=== PATIENT | male | born 1980 | race Caucasian/White ===

== ENCOUNTER 2020-01-02 03:35 | Emergency (ER) | payer MEDICAID ==
[~2020-01-02] VITALS: Ht 175.3 cm; Wt 113.6 kg
--- NOTE | 2020-01-02 03:44 | NUR ---
dustin notified [id number]
[2020-01-02] MEDS ORDERED: LIDOcaine/epinephrine/tetracaine TOPICAL sol 3 ML syringe TOP ONE (04:15)
[2020-01-02 04:26] VITALS: BP 137/78
== END 2020-01-02 04:57 | disposition home or self-care (01) ==
LOC: ER 03:35
DX: S01.81XA Laceration without foreign body of other part of head, initial encounter (principal); Z88.8 Allergy status to other drugs, medicaments and biological substances; Y04.2XXA Assault by strike against or bumped into by another person, initial encounter; Y93.89 Activity, other specified; Y92.89 Other specified places as the place of occurrence of the external cause; Y99.8 Other external cause status
CPT/HCPCS: 12013; 70450; 99284

== ENCOUNTER 2020-01-08 12:39 | Emergency (ER) | payer MEDICAID ==
[~2020-01-08] VITALS: Ht 180.3 cm; Wt 99.0 kg
[2020-01-08 14:57] LABS: CLARITY,URINE SLIGHTLY CLOUDY (Clear); COLOR,URINE YELLOW (Yellow); GLUCOSE, URINE NEGATIVE (Neg); KETONES,URINE TRACE mg/dl (Neg); LEUKOCYTE ESTERASE ,URINE NEGATIVE (Neg); NITRITES, URINE NEGATIVE (Neg); OCCULT BLOOD,URINE NEGATIVE (Neg); PH,URINE 6.5 (4.8-8.0); PROTEIN,URINE NEGATIVE (Neg)
[2020-01-08 15:00] LABS: UA COLLECTION TYPE CLN CATCH MIDSTREAM
--- NOTE | 2020-01-08 15:04 | NUR ---
ultrasound at bedside per md request
[2020-01-08 15:11] LABS: MUCUS STRANDS MANY /LPF (Neg); SQUAMOUS EPITHELIAL CELL,UR NONE SEEN /LPF (FEW)
[2020-01-08 15:14] LABS: CAL OXALATE CRYSTALS FEW /HPF (NEGATIVE); SPERM FEW /HPF (NEGATIVE)
[2020-01-08 15:15] LABS: BACTERIA,URINE FEW /HPF (Neg)
[2020-01-08 16:05] VITALS: BP 130/79
[2020-01-08] MEDS ORDERED: CEPH500C5 PO (16:14)
== END 2020-01-08 16:23 | disposition home or self-care (01) ==
LOC: ER 12:40
DX: N39.0 Urinary tract infection, site not specified (principal); Z88.8 Allergy status to other drugs, medicaments and biological substances
CPT/HCPCS: 36415; 76870; 81001; 87088; 87491; 99284

== ENCOUNTER 2020-04-12 22:05 | Emergency (ER) | payer MEDICAID ==
[~2020-04-12] VITALS: Ht 175.3 cm; Wt 100.0 kg
[2020-04-12 22:09] VITALS: BP 145/78
[2020-04-12] MEDS ORDERED: LIDOcaine 1.5% w/epinephrine 1:200,000 5ml ampul IJ ONE (22:25)
[2020-04-12] MEDS ORDERED: HYDROcodone/acetaminophen 10/325mg tab PO ONE (22:25)
[2020-04-12] MEDS ORDERED: bacitracin 15gm ointment TP ONE (22:25)
[2020-04-12] MEDS ORDERED: LIDOcaine 1% w/epiNEPHrine 1:200,000 30ml vial IJ ONE (22:30)
[2020-04-12] MEDS ORDERED: CEPH250T PO (23:47)
[2020-04-12] MEDS ORDERED: HYDR-4383 PO (23:47)
== END 2020-04-13 00:03 | disposition home or self-care (01) ==
LOC: ER 22:05
DX: S01.411A Laceration without foreign body of right cheek and temporomandibular area, initial encounter (principal); S81.012A Laceration without foreign body, left knee, initial encounter; S01.81XA Laceration without foreign body of other part of head, initial encounter; F17.200 Nicotine dependence, unspecified, uncomplicated; F15.90 Other stimulant use, unspecified, uncomplicated; Z98.890 Other specified postprocedural states; Z72.89 Other problems related to lifestyle; Z88.8 Allergy status to other drugs, medicaments and biological substances; Z79.2 Long term (current) use of antibiotics; Z79.899 Other long term (current) drug therapy; W18.40XA Slipping, tripping and stumbling without falling, unspecified, initial encounter; Y93.89 Activity, other specified; Y92.89 Other specified places as the place of occurrence of the external cause; Y99.8 Other external cause status
CPT/HCPCS: 12044; 12053; 99283

== ENCOUNTER 2020-04-26 05:12 | Emergency (ER) | payer MEDICAID ==
[~2020-04-26] VITALS: Ht 175.3 cm; Wt 88.5 kg
[~2020-04-26 05:12] MED LIST: HYDR-4383 PO
[2020-04-26 05:17] VITALS: BP 115/79
== END 2020-04-26 05:55 | disposition home or self-care (01) ==
LOC: ER 05:13
DX: S81.012D Laceration without foreign body, left knee, subsequent encounter (principal); S01.01XD Laceration without foreign body of scalp, subsequent encounter; S01.81XD Laceration without foreign body of other part of head, subsequent encounter; L03.116 Cellulitis of left lower limb; F15.90 Other stimulant use, unspecified, uncomplicated; Z72.89 Other problems related to lifestyle; Z59.0 Homelessness; Z98.890 Other specified postprocedural states; Z88.8 Allergy status to other drugs, medicaments and biological substances; Z79.899 Other long term (current) drug therapy; X58.XXXD Exposure to other specified factors, subsequent encounter
CPT/HCPCS: 99281

== ENCOUNTER 2020-05-25 09:50 | Emergency (ER) | payer MEDICAID ==
[~2020-05-25] VITALS: Ht 175.3 cm; Wt 90.9 kg
[2020-05-25] MEDS ORDERED: ketorolac trometh inj. 60 MG/2 ML VIAL IM ONE (10:30)
[2020-05-25 11:25] VITALS: BP 110/67
[2020-05-25] MEDS ORDERED: NAPR-56 PO (12:39)
== END 2020-05-25 13:02 | disposition home or self-care (01) ==
LOC: ER 09:51
DX: S80.212A Abrasion, left knee, initial encounter (principal); F17.200 Nicotine dependence, unspecified, uncomplicated; F15.90 Other stimulant use, unspecified, uncomplicated; Z72.89 Other problems related to lifestyle; Z59.0 Homelessness; Z88.8 Allergy status to other drugs, medicaments and biological substances; Z79.899 Other long term (current) drug therapy; X50.1XXA Overexertion from prolonged static or awkward postures, initial encounter; Y93.89 Activity, other specified; Y92.89 Other specified places as the place of occurrence of the external cause; Y99.8 Other external cause status
CPT/HCPCS: 29505; 73564; 96372; 99284; J1885

== ENCOUNTER 2020-07-20 20:41 | Inpatient (IN) | payer MEDICAID ==
[~2020-07-20] VITALS: Ht 180.3 cm; Wt 88.5 kg
[2020-07-20] MEDS ORDERED: LIDOcaine 1% W/epiNEPHrine 1:200,000 10ml vial IJ ONE (22:45)
[2020-07-20] MEDS ORDERED: oxyCODONE/APAP 10/325mg tablet PO ONE (22:50)
[2020-07-20] MEDS ORDERED: LIDOcaine 1% w/epiNEPHrine 1:200,000 30ml vial IJ ONE (22:50)
[2020-07-21 00:28] LABS: BASOPHILS % (AUTO) 0.3 % (0-1); EOSINOPHILS % (AUTO) 0.3 % (0-6); HEMATOCRIT 33.4 % (42.0-52.0); HEMOGLOBIN 10.9 g/dl (14.0-17.9); LYMPHOCYTES # (AUTO) 1.6 X10'3 (1.1-4.8); LYMPHOCYTES % (AUTO) 15.3 % (21-51); MEAN CORPUSCULAR HEMOGLOBIN 25.9 PG (27.0-31.0); MEAN CORPUSCULAR HGB CONC 32.8 g/dL (33.0-36.5); MEAN CORPUSCULAR VOLUME 79.1 FL (78-98); MEAN PLATELET VOLUME 7.3 FL (7.4-10.4); MONOCYTES # (AUTO) 1.9 X10'3 (0-0.9); MONOCYTES % (AUTO) 18.3 % (2-12); NEUTROPHILS # (AUTO) 6.7 X10'3 (1.8-7.7); NEUTROPHILS % (AUTO) 65.8 % (42-75); PLATELET COUNT 414 X10'3 (140-440); RED BLOOD COUNT 4.22 X10'6 (4.70-6.10); RED CELL DISTRIBUTION WIDTH 16.3 % (11.5-14.5); WHITE BLOOD COUNT 10.1 X10'3 (4.5-11.0)
[2020-07-21 00:42] LABS: ALBUMIN 2.7 G/DL (3.4-5.0); ANION GAP 7 (8-16); BLOOD UREA NITROGEN 10 MG/DL (7-18); BUN/CREATININE RATIO 12.5 (5.4-32.0); C-REACTIVE PROTEIN 4.88 MG/DL (0.0-0.5); CALCIUM 8.6 MG/DL (8.5-10.1); CHLORIDE 101 MMOL/L (99-107); GLUCOSE 116 MG/DL (70-104); SODIUM 134 MMOL/L (135-145); TOTAL CARBON DIOXIDE 26.2 MMOL/L (24-32); eGFR > 90 ML/MIN
[2020-07-21 00:49] LABS: BF RBC COUNT 5850 /CU MM; BF WBC COUNT 68550 /CU MM (0-1000); BFAPPEAR CLOUDY; BFCOLOR YELLOW; BFVOLUME 22 ML; LYMPHOCYTES,BODY FLUID 6 %; MONOCYTES,BODY FLUID 2 %; NEUTROPHILS,BODY FLUID 92 %
[2020-07-21] MEDS ORDERED: CefTRIAXone/D5W-Rocephin 1gm 50 ML IV ONE (01:00)
--- NOTE | 2020-07-21 01:12 | NUR ---
LA EDUCATED ON NPO STATUS
[2020-07-21] MEDS ORDERED: NO HOME MEDS (04:44)
[2020-07-21] MEDS ORDERED: mag hydrox/Alum hydrox/simeth 30ml oral suspension PO PRN (05:10)
[2020-07-21] MEDS ORDERED: magnesium hydroxide 30ml (MOM) UD suspension PO PRN (05:10)
[2020-07-21] MEDS ORDERED: potassium CL 10mEq/100ml bag 100 ML IV PRN ×2 (05:10)
[2020-07-21] MEDS ORDERED: ondansetron/PF 4mg/2ml inj IV PRN (05:10)
[2020-07-21] MEDS ORDERED: morphine 2 MG/ML inj. syringe IV PRN ×2 (05:10)
[2020-07-21] MEDS ORDERED: acetaminophen 325mg tablet PO PRN (05:10)
[2020-07-21] MEDS ORDERED: potassium Cl 20 mEq SR tablet PO PRN ×2 (05:10)
[2020-07-21 07:32] VITALS: BP 126/76
[2020-07-21] MEDS: K and/or MAG REPLACEMENT MC SCH ×2 (08:00→20:00)
--- NOTE | 2020-07-21 09:01 | NUR ---
checked on patient, he is resting. no needs at this time
--- NOTE | 2020-07-21 09:15 | NUR ---
HELPED TECH WITH BED CHANGE AND PER CARE
[2020-07-21] MEDS ORDERED: vancomycin/NS 1 GM ADD-VANTAGE 250 ML IV SCH (09:20)
[2020-07-21 10:00] VITALS: BP 122/83
[2020-07-21] MEDS: normal saline 1000ml 1,000 ML IV SCH ×3 (10:55→23:12)
[2020-07-21] MEDS: HYDROcodone/acetaminophen 10/325mg tab PO PRN ×2 (11:47→23:12)
[2020-07-21] MEDS ORDERED: VANCOmycin 1250MG/NS 250ml Bag 250 ML IV SCH (13:00)
[2020-07-21] MEDS ORDERED: ringers solution, lacted 1,000 ML IV ONE (14:10)
[2020-07-21 18:00] VITALS: BP 122/70
--- NOTE | 2020-07-21 18:30 | NUR ---
Patient in room [facility] 4017. I have received report from Sakshi DUNCAN and had the opportunity to ask questions and assume patient care.
--- NOTE | 2020-07-21 18:31 | NUR ---
Problems reprioritized. Patient report given, questions answered & plan of care reviewed with
[2020-07-21] MEDS: lactobacillus rhamnosus 10,000 MMU CELLS/CAPSULE PO SCH (20:49)
[2020-07-21 22:00] VITALS: BP 138/80
[2020-07-21] MEDS: vancomycin/NS 1 GM ADD-VANTAGE 250 ML IV SCH (23:11)
[2020-07-22] VITALS (16 sets, daily range): BP systolic 111–135; BP diastolic 52–93
[2020-07-22] MEDS: CefTRIAXone/D5W-Rocephin 1gm 50 ML IV SCH (03:00)
[2020-07-22] MEDS ORDERED: famotidine 20mg tablet PO ONE (06:00)
[2020-07-22 06:04] LABS: BASOPHILS % (AUTO) 0.5 % (0-1); EOSINOPHILS # (AUTO) 0.1 X10'3 (0-0.9); EOSINOPHILS % (AUTO) 1.4 % (0-6); HEMOGLOBIN 11.6 g/dl (14.0-17.9); LYMPHOCYTES # (AUTO) 1.6 X10'3 (1.1-4.8); LYMPHOCYTES % (AUTO) 16.7 % (21-51); MEAN CORPUSCULAR HEMOGLOBIN 25.5 PG (27.0-31.0); MEAN CORPUSCULAR HGB CONC 32.1 g/dL (33.0-36.5); MEAN CORPUSCULAR VOLUME 79.4 FL (78-98); MEAN PLATELET VOLUME 7.1 FL (7.4-10.4); MONOCYTES # (AUTO) 1.5 X10'3 (0-0.9); MONOCYTES % (AUTO) 15.9 % (2-12); NEUTROPHILS # (AUTO) 6.3 X10'3 (1.8-7.7); NEUTROPHILS % (AUTO) 65.5 % (42-75); PLATELET COUNT 410 X10'3 (140-440); RED BLOOD COUNT 4.53 X10'6 (4.70-6.10); RED CELL DISTRIBUTION WIDTH 16.3 % (11.5-14.5); WHITE BLOOD COUNT 9.6 X10'3 (4.5-11.0)
--- NOTE | 2020-07-22 06:15 | NUR ---
Problems reprioritized. Patient report given, questions answered & plan of care reviewed with Samina DUNCAN.
--- NOTE | 2020-07-22 06:15 | NUR ---
Problems reprioritized. Patient report given, questions answered & plan of care reviewed with Sandra DUNCAN.
[2020-07-22 06:20] LABS: ALANINE AMINOTRANSFERASE 36 U/L (12-78); ALBUMIN 2.4 G/DL (3.4-5.0); ALBUMIN/GLOBULIN RATIO 0.5 (1.1-1.5); ALKALINE PHOSPHATASE 70 IU/L (46-116); ANION GAP 8 (8-16); ASPARTATE AMINO TRANSFERASE 26 U/L (10-37); BILIRUBIN,TOTAL 0.4 MG/DL (0.1-1.0); BLOOD UREA NITROGEN 11 MG/DL (7-18); BUN/CREATININE RATIO 14.5 (5.4-32.0); CALCIUM 8.8 MG/DL (8.5-10.1); CHLORIDE 100 MMOL/L (99-107); CREATININE 0.76 MG/DL (0.60-1.10); GLUCOSE 84 MG/DL (70-104); POTASSIUM 4.3 MMOL/L (3.5-5.1); SODIUM 136 MMOL/L (135-145); TOTAL CARBON DIOXIDE 28.5 MMOL/L (24-32); TOTAL PROTEIN 7.2 G/DL (6.4-8.2); eGFR > 90 ML/MIN
[2020-07-22] MEDS: HYDROcodone/acetaminophen 10/325mg tab PO PRN ×2 (07:14→21:00)
[2020-07-22] MEDS: lactobacillus rhamnosus 10,000 MMU CELLS/CAPSULE PO SCH ×2 (07:15→20:58)
[2020-07-22] MEDS: vancomycin/NS 1 GM ADD-VANTAGE 250 ML IV SCH (07:17)
[2020-07-22] MEDS ORDERED: BUPIVAcaine/PF 2.5 mg/ml (0.25%) 30ml vial ONE ×2 (07:19→07:24)
[2020-07-22] MEDS: K and/or MAG REPLACEMENT MC SCH ×2 (08:00→20:00)
[2020-07-22] MEDS ORDERED: hydrALAZINE 20mg/ml inj. IV PRN (08:00)
[2020-07-22] MEDS ORDERED: labetalol 20mg/4ml (5mg/ml) syringe IV PRN (08:00)
[2020-07-22] MEDS ORDERED: meperidine/PF 25mg/ml syringe IV PRN ×3 (08:00)
[2020-07-22] MEDS ORDERED: ringers solution, lacted 1,000 ML IV SCH (08:00)
[2020-07-22] MEDS ORDERED: proCHLORperazine 10 MG/2 ml inj IV PRN (08:00)
[2020-07-22] MEDS ORDERED: morphine 4 MG/ML inj SYRINge IV PRN (08:00)
[2020-07-22] MEDS ORDERED: morphine 2 MG/ML inj. syringe IV PRN (08:00)
[2020-07-22] MEDS ORDERED: ondansetron/PF 4mg/2ml inj IV PRN (08:00)
[2020-07-22] MEDS ORDERED: acetaminophen 1,000mg/100ml IV 100 ML IV PRN (08:00)
[2020-07-22] MEDS ORDERED: midazolam 2 mg/2 ml injection ONE (08:12)
[2020-07-22] MEDS ORDERED: fentaNYL/PF 50MCG/1 ML 2ML syringe ONE (08:12)
[2020-07-22] MEDS ORDERED: ondansetron/PF 4mg/2ml inj ONE (08:24)
[2020-07-22] MEDS ORDERED: dexamethasone sod phosphate 4mg/ml inj. ONE (08:24)
[2020-07-22] MEDS ORDERED: propofol inj 20 ML IV ONE (08:24)
[2020-07-22] MEDS ORDERED: LIDOcaine 2% (20mg/ml) 5ml vial ONE (08:24)
--- NOTE | 2020-07-22 08:59 | NUR ---
Received from OR via , accompanied by Anesthesiologist DR ALVAREZ and report given by Anesthesiolgist.PT WAKES TO VOICE, SKIN WARM AND PINK, NO C/O PAIN, LEFT KNEE DRESSING COVERED WITH SUZANNA WRAP, CD, SCD'S ON, PIV LEFT WRIST 20G WITH LR 100ML/HR, PEDAL PULSES BILAT +3.
--- NOTE | 2020-07-22 09:29 | NUR ---
Report called to receiving nurse. Transferred via BED Belongings . Special Issues communicated to receiving nurse LORRAINE DUNCAN. PT IS AWAKE, ALERT AND ORIENTED, SKIN WARM AND PINK, DISTAL PULSES +3, DRESSING CD, PIV PATENT, NO C/O PAIN, SCD'S ON, FELIBERTO CLEAR LIQUIDS, PT MEETS DISCHARGE CRITERIA.
--- NOTE | 2020-07-22 10:00 | NUR ---
Dr. South aware of patient Synovial fluid results.
--- NOTE | 2020-07-22 12:01 | NUR ---
Malnutrition consult: Pt reports 24-33 lb wt loss with decreased appetite per malnutrition risk screen with RN. Current documented scaled weight is stable with wt hx. Pt on a regular diet documented with 100% PO intake first meal. Patient's only documented decrease in muscle strength is localized to left leg where pt has a knee injury. No documented edema. Pt appears well developed well nourished per ED report. Pt currently lacks a minimum of two criteria for malnutrition. Will continue to follow and monitor need for additional protein post I&D pending further trends in PO intake. Addendum: 07/22/20 at [address] Amended: Links added.
[2020-07-22] MEDS ORDERED: VANCOMYCIN LEVEL IV ONE (14:30)
[2020-07-22] MEDS: VANCOmycin 1250MG/NS 250ml Bag 250 ML IV SCH ×2 (16:26→23:30)
--- NOTE | 2020-07-22 18:11 | NUR ---
Problems reprioritized. Patient report given, questions answered & plan of care reviewed with Boubacar.
--- NOTE | 2020-07-22 18:42 | NUR ---
Problems reprioritized. Patient report given, questions answered & plan of care reviewed with Boubacar DUNCAN.
[2020-07-23 02:00] VITALS: BP 95/43
[2020-07-23] MEDS: CefTRIAXone/D5W-Rocephin 1gm 50 ML IV SCH (03:06)
[2020-07-23 05:50] LABS: BASOPHILS # (AUTO) 0.1 X10'3 (0-0.2); BASOPHILS % (AUTO) 0.5 % (0-1); EOSINOPHILS % (AUTO) 0 % (0-6); HEMOGLOBIN 10.7 g/dl (14.0-17.9); LYMPHOCYTES # (AUTO) 1.1 X10'3 (1.1-4.8); LYMPHOCYTES % (AUTO) 8.2 % (21-51); MEAN CORPUSCULAR HEMOGLOBIN 26.1 PG (27.0-31.0); MEAN CORPUSCULAR HGB CONC 33.3 g/dL (33.0-36.5); MEAN CORPUSCULAR VOLUME 78.5 FL (78-98); MEAN PLATELET VOLUME 7.7 FL (7.4-10.4); MONOCYTES % (AUTO) 7.2 % (2-12); NEUTROPHILS # (AUTO) 11.4 X10'3 (1.8-7.7); NEUTROPHILS % (AUTO) 84.1 % (42-75); PLATELET COUNT 432 X10'3 (140-440); RED BLOOD COUNT 4.08 X10'6 (4.70-6.10); RED CELL DISTRIBUTION WIDTH 15.8 % (11.5-14.5); WHITE BLOOD COUNT 13.5 X10'3 (4.5-11.0)
[2020-07-23 05:57] LABS: ANION GAP 6 (8-16); BILIRUBIN,TOTAL 0.2 MG/DL (0.1-1.0); BLOOD UREA NITROGEN 15 MG/DL (7-18); BUN/CREATININE RATIO 20.8 (5.4-32.0); CALCIUM 8.7 MG/DL (8.5-10.1); CHLORIDE 104 MMOL/L (99-107); CREATININE 0.72 MG/DL (0.60-1.10); GLUCOSE 122 MG/DL (70-104); POTASSIUM 4.4 MMOL/L (3.5-5.1); SODIUM 138 MMOL/L (135-145); TOTAL CARBON DIOXIDE 28.5 MMOL/L (24-32); TOTAL PROTEIN 6.9 G/DL (6.4-8.2); eGFR > 90 ML/MIN
[2020-07-23 05:58] LABS: ALANINE AMINOTRANSFERASE 32 U/L (12-78); ALBUMIN 2.2 G/DL (3.4-5.0); ALBUMIN/GLOBULIN RATIO 0.5 (1.1-1.5); ALKALINE PHOSPHATASE 63 IU/L (46-116); ASPARTATE AMINO TRANSFERASE 18 U/L (10-37)
[2020-07-23 06:00] VITALS: BP 110/55
--- NOTE | 2020-07-23 06:50 | NUR ---
Problems reprioritized. Patient report given, questions answered & plan of care reviewed with Samina DUNCAN.
--- NOTE | 2020-07-23 07:03 | NUR ---
Patient in room [facility] 4017. I have received report from PERLA Hamlin and had the opportunity to ask questions and assume patient care.
--- NOTE | 2020-07-23 07:03 | NUR ---
Rec'd call from Katelynn in micro, culture left knee synovial fluid MRSA +
--- NOTE | 2020-07-23 07:16 | NUR ---
Page Sent PAGER ID: [phone] MESSAGE: Samina 5199-RE: Rah Brandt [id number]...pt culture L knee synovial fluid positive MRSA
[2020-07-23] MEDS: K and/or MAG REPLACEMENT MC SCH ×2 (07:40→20:00)
[2020-07-23] MEDS: lactobacillus rhamnosus 10,000 MMU CELLS/CAPSULE PO SCH ×2 (07:50→21:24)
[2020-07-23] MEDS: VANCOmycin 1250MG/NS 250ml Bag 250 ML IV SCH ×2 (07:50→17:30)
[2020-07-23 10:00] VITALS: BP 120/66
--- NOTE | 2020-07-23 11:34 | NUR ---
Noted pt PO 100% regular meals; double proteins BIDLD added given additional needs for wound healing s/p I&D L knee. Dietary notified. Addendum: 07/23/20 at [address] Amended: Links added.
[2020-07-23] MEDS ORDERED: VANCOMYCIN LEVEL IV ONE (15:30)
[2020-07-23 18:00] VITALS: BP 108/60
--- NOTE | 2020-07-23 18:21 | NUR ---
Problems reprioritized. Patient report given, questions answered & plan of care reviewed with PERLA MENA.
[2020-07-23 22:00] VITALS: BP 113/70
[2020-07-24] MEDS: VANCOmycin 1250MG/NS 250ml Bag 250 ML IV SCH (00:44)
[2020-07-24 06:00] VITALS: BP 126/81
--- NOTE | 2020-07-24 06:23 | NUR ---
Patient in room [facility] 4017. I have received report from PERLA MENA and had the opportunity to ask questions and assume patient care.
[2020-07-24 07:25] LABS: BASOPHILS # (AUTO) 0.1 X10'3 (0-0.2); BASOPHILS % (AUTO) 0.9 % (0-1); EOSINOPHILS # (AUTO) 0.1 X10'3 (0-0.9); HEMATOCRIT 33.9 % (42.0-52.0); HEMOGLOBIN 11.1 g/dl (14.0-17.9); LYMPHOCYTES # (AUTO) 2.4 X10'3 (1.1-4.8); LYMPHOCYTES % (AUTO) 24.4 % (21-51); MEAN CORPUSCULAR HEMOGLOBIN 26.1 PG (27.0-31.0); MEAN CORPUSCULAR HGB CONC 32.7 g/dL (33.0-36.5); MEAN CORPUSCULAR VOLUME 79.8 FL (78-98); MEAN PLATELET VOLUME 7.5 FL (7.4-10.4); MONOCYTES % (AUTO) 10.3 % (2-12); NEUTROPHILS # (AUTO) 6.3 X10'3 (1.8-7.7); NEUTROPHILS % (AUTO) 63.4 % (42-75); PLATELET COUNT 458 X10'3 (140-440); RED BLOOD COUNT 4.24 X10'6 (4.70-6.10); RED CELL DISTRIBUTION WIDTH 15.9 % (11.5-14.5); WHITE BLOOD COUNT 9.9 X10'3 (4.5-11.0)
[2020-07-24 07:47] LABS: ALANINE AMINOTRANSFERASE 39 U/L (12-78); ALBUMIN 2.3 G/DL (3.4-5.0); ALBUMIN/GLOBULIN RATIO 0.5 (1.1-1.5); ALKALINE PHOSPHATASE 64 IU/L (46-116); ANION GAP 5 (8-16); ASPARTATE AMINO TRANSFERASE 23 U/L (10-37); BILIRUBIN,TOTAL 0.2 MG/DL (0.1-1.0); BLOOD UREA NITROGEN 15 MG/DL (7-18); BUN/CREATININE RATIO 18.8 (5.4-32.0); CALCIUM 8.6 MG/DL (8.5-10.1); CHLORIDE 105 MMOL/L (99-107); GLUCOSE 86 MG/DL (70-104); POTASSIUM 3.9 MMOL/L (3.5-5.1); SODIUM 140 MMOL/L (135-145); TOTAL CARBON DIOXIDE 29.7 MMOL/L (24-32); TOTAL PROTEIN 6.9 G/DL (6.4-8.2); eGFR > 90 ML/MIN
[2020-07-24] MEDS: K and/or MAG REPLACEMENT MC SCH (08:00)
[2020-07-24] MEDS: lactobacillus rhamnosus 10,000 MMU CELLS/CAPSULE PO SCH (08:07)
--- NOTE | 2020-07-24 08:20 | NUR ---
sent a page to hospitalist about pt going ama this morning
--- NOTE | 2020-07-24 08:20 | NUR ---
WENT INTO PTS ROOM TO PROVIDE AM MEDS, PT WAS TEARFUL AND STATED HE FEELS LIKE HES IN SENIOR CARE AGAIN AND HAS TO GET OUT OF HERE FOR HIS MENTAL HEALTH. BRINDA RAMIREZ MD AND DOCUMENTED OCCURRENCE REPORT. IV WAS REMOVED, PT DRESSED SELF AND I ESCORTED PT OUT THE FRONT DOORS
[2020-07-25] MEDS ORDERED: VANCOMYCIN LEVEL IV ONE (07:30)
== END 2020-07-24 08:20 | disposition left against medical advice (07) | DRG 344 ==
LOC: ER 20:43 → ED HOLD 07-21 05:07 → ORTHO 4S 07-21 07:15 → PACU 07-22 08:47 → ORTHO 4S 07-22 09:30
PROVIDERS: ADMIT Internal Medicine; ATTEND Internal Medicine
PROC: 0S9D3ZZ Drainage of Left Knee Joint, Percutaneous Approach (ICD-10-PCS; 2020-07-20)
PROC: 0Y9G0ZZ Drainage of Left Knee Region, Open Approach (ICD-10-PCS; principal; 2020-07-22 07:59)
DX: M00.9 Pyogenic arthritis, unspecified (principal); F12.10 Cannabis abuse, uncomplicated; G89.29 Other chronic pain; B19.20 Unspecified viral hepatitis C without hepatic coma; D64.9 Anemia, unspecified; E43 Unspecified severe protein-calorie malnutrition; B95.62 Methicillin resistant Staphylococcus aureus infection as the cause of diseases classified elsewhere; F15.10 Other stimulant abuse, uncomplicated; D63.8 Anemia in other chronic diseases classified elsewhere; R26.2 Difficulty in walking, not elsewhere classified; Z20.828 Contact with and (suspected) exposure to other viral communicable diseases; F17.200 Nicotine dependence, unspecified, uncomplicated; Z59.0 Homelessness; Z88.8 Allergy status to other drugs, medicaments and biological substances; Z68.27 Body mass index [BMI] 27.0-27.9, adult
CPT/HCPCS: 36415; 73564; 80048; 80053; 80202; 82948; 83605; 85025; 85651; 85730; 86140; 87040; 87070; 87077; 87081; 87186; 87635; 89051; 96365; 99285; A4215; A4618; A6222; A6446; A6449; A7000; C9803; G0378; J0696; J1100; J2001; J2250; J2270; J2405; J2704; J3010; J3370; J3490; J7030; J7120

== ENCOUNTER 2022-02-01 03:00 | Emergency (ER) | payer MEDICAID ==
[~2022-02-01] VITALS: Ht 180.3 cm; Wt 72.0 kg
[~2022-02-01 03:00] MED LIST changes: -HYDR-4383 PO; +NO HOME MEDS
[2022-02-01 03:16] VITALS: BP 114/83
== END 2022-02-01 06:30 | disposition left against medical advice (07) ==
LOC: ER 03:01
DX: R07.81 Pleurodynia (principal); Z53.21 Procedure and treatment not carried out due to patient leaving prior to being seen by health care provider; W19.XXXA Unspecified fall, initial encounter; Y93.89 Activity, other specified; Y92.89 Other specified places as the place of occurrence of the external cause; Y99.8 Other external cause status
CPT/HCPCS: 71100

== ENCOUNTER 2022-10-13 10:43 | Inpatient (IN) | payer MEDICAID ==
[~2022-10-13] VITALS: Ht 180.3 cm; Wt 79.5 kg
[~2022-10-13 10:43] MED LIST changes: +NALO4SPR BOTHNARES
[2022-10-13 11:28] LABS: ABG BASE EXCESS -2.8 mmol/L (-2.0-2.0); ABG HCO3 21.6 mmol/L (22.0-26.0); ABG OXYGEN SATURATION 92.9 % (94-97); ABG PCO2 (T) 36.4 mmHg (35.0-48.0); ABG PO2 (T) 71.1 mmHg (75.0-100.0); ALLEN'S TEST POSITIVE; FCOHb 0.6 % (0.0-3.9); FMetHb 0.2 % (0.0-1.5); FO2Hb 92.2 % (94-97); RESPIRATORY RATE 12 b/min; TOTAL HEMOGLOBIN 13.3 G/dl (14.0-17.9)
[2022-10-13 11:29] LABS: ALANINE AMINOTRANSFERASE 37 U/L (12-78); ALBUMIN 2.9 G/DL (3.4-5.0); ALBUMIN/GLOBULIN RATIO 0.6 (1.1-1.5); ALKALINE PHOSPHATASE 113 IU/L (46-116); ANION GAP 13 (8-16); ASPARTATE AMINO TRANSFERASE 46 U/L (10-37); BILIRUBIN,TOTAL 0.3 MG/DL (0.1-1.0); BLOOD UREA NITROGEN 16 MG/DL (7-18); BUN/CREATININE RATIO 13.9 (5.4-32.0); CALCIUM 8.6 MG/DL (8.5-10.1); CHLORIDE 101 MMOL/L (99-107); CREATININE 1.15 MG/DL (0.60-1.10); GLUCOSE 164 MG/DL (70-104); POTASSIUM 3.5 MMOL/L (3.5-5.1); SODIUM 140 MMOL/L (135-145); TOTAL CARBON DIOXIDE 26.2 MMOL/L (24-32); eGFR 70 ML/MIN
[2022-10-13] MEDS ORDERED: ketorolac trometh. 30mg/ml inj. IV ONE (11:30)
[2022-10-13 11:37] LABS: MAGNESIUM 2.1 MG/DL (1.5-2.4)
[2022-10-13 11:41] LABS: BASOPHILS # (AUTO) 0.1 X10'3 (0-0.2); BASOPHILS % (AUTO) 1.1 % (0-1); EOSINOPHILS % (AUTO) 0.3 % (0-6); HEMATOCRIT 40.8 % (42.0-52.0); HEMOGLOBIN 12.9 g/dl (14.0-17.9); LYMPHOCYTES % (AUTO) 26.3 % (21-51); MEAN CORPUSCULAR HEMOGLOBIN 26.3 PG (27.0-31.0); MEAN CORPUSCULAR HGB CONC 31.7 g/dL (33.0-36.5); MEAN PLATELET VOLUME 6.8 FL (7.4-10.4); MONOCYTES % (AUTO) 8.7 % (2-12); NEUTROPHILS # (AUTO) 7.2 X10'3 (1.8-7.7); NEUTROPHILS % (AUTO) 63.6 % (42-75); PLATELET COUNT 290 X10'3 (140-440); RED BLOOD COUNT 4.92 X10'6 (4.70-6.10); RED CELL DISTRIBUTION WIDTH 16.6 % (11.5-14.5); WHITE BLOOD COUNT 11.3 X10'3 (4.5-11.0)
[2022-10-13] MEDS ORDERED: furosemide 10 MG/1 ML 10ml inj IV ONE (12:00)
[2022-10-13] MEDS ORDERED: nitroGLYCERIN-Tridil 50MG/D5W 250 ML IV SCH (12:16)
--- NOTE | 2022-10-13 12:35 | NUR ---
NITRO GTT STARTED AND SETTINGS INCREASED TO 10MCG/MIN PER VERBAL ORDER DR. WHITFIELD.
--- NOTE | 2022-10-13 13:55 | NUR ---
PT TAKEN TO AND BACK FROM CT WITH RN AND RT AT [facility].
[2022-10-13] MEDS ORDERED: CefTRIAXone/D5W-Rocephin 1gm 50 ML IV ONE (14:35)
[2022-10-13] MEDS ORDERED: acetaminophen 325mg tablet PO PRN (17:35)
[2022-10-13] MEDS ORDERED: magnesium hydroxide 30ml (MOM) UD suspension PO PRN (17:35)
[2022-10-13] MEDS ORDERED: ondansetron/PF 4mg/2ml inj IV PRN (17:35)
[2022-10-13] MEDS ORDERED: normal saline 1000ml 1,000 ML IV SCH (17:35)
[2022-10-13] MEDS ORDERED: mag hydrox/Alum hydrox/simeth 30ml oral suspension PO PRN (17:35)
[2022-10-13] MEDS ORDERED: PERFLUTREN PROTEIN-A MICROSPHR (Optison) 0.22 MG/ML 3ML VIAL IV ONE (17:47)
[2022-10-13 18:10] VITALS: BP 113/77
[2022-10-13] MEDS ORDERED: ipratropium/albuterol 3ml nebule NEB SCH (19:00)
[2022-10-13] MEDS ORDERED: docusate sod 100mg capsule PO SCH (20:00)
[2022-10-13] MEDS ORDERED: furosemide 10 MG/1 ML 10ml inj IV SCH (20:00)
[2022-10-13] MEDS ORDERED: heparin, porcine 5000 units/ml vial SQ SCH (20:00)
[2022-10-14] MEDS ORDERED: piperacillin/tazo 4.5gm/100ml 100 ML IV SCH
== END 2022-10-13 19:45 | disposition left against medical advice (07) | DRG 812 ==
LOC: ER 10:43 → ED HOLD 17:37 → EDBEDREQ 19:17
PROVIDERS: ADMIT Family Medicine; ATTEND Family Medicine
PROC: 5A09357 Assistance with Respiratory Ventilation, Less than 24 Consecutive Hours, Continuous Positive Airway Pressure (ICD-10-PCS; principal; 2022-10-13)
DX: T40.411A Poisoning by fentanyl or fentanyl analogs, accidental (unintentional), initial encounter (principal); J96.01 Acute respiratory failure with hypoxia; J69.0 Pneumonitis due to inhalation of food and vomit; F11.90 Opioid use, unspecified, uncomplicated; R04.2 Hemoptysis; F15.90 Other stimulant use, unspecified, uncomplicated; F17.210 Nicotine dependence, cigarettes, uncomplicated; Z53.29 Procedure and treatment not carried out because of patient's decision for other reasons; Z59.00 Homelessness unspecified; Y92.89 Other specified places as the place of occurrence of the external cause; Z88.8 Allergy status to other drugs, medicaments and biological substances
CPT/HCPCS: 36415; 36600; 71045; 71250; 80053; 82803; 83735; 83880; 84484; 85018; 85025; 93306; 94660; 94760; 99291; G0378; J0696; J1885; J1940; J3490

== ENCOUNTER 2022-11-06 05:16 | Emergency (ER) | payer MEDICAID ==
[~2022-11-06] VITALS: Ht 180.3 cm; Wt 79.5 kg
[2022-11-06 05:35] VITALS: BP 139/92
[2022-11-06 05:37] LABS: BASOPHILS # (AUTO) 0.1 X10'3 (0-0.2); BASOPHILS % (AUTO) 0.8 % (0-1); EOSINOPHILS # (AUTO) 0.4 X10'3 (0-0.9); EOSINOPHILS % (AUTO) 3.6 % (0-6); HEMATOCRIT 39.7 % (42.0-52.0); HEMOGLOBIN 12.5 g/dl (14.0-17.9); LYMPHOCYTES % (AUTO) 20.4 % (21-51); MEAN CORPUSCULAR HEMOGLOBIN 26.3 PG (27.0-31.0); MEAN CORPUSCULAR HGB CONC 31.5 g/dL (33.0-36.5); MEAN CORPUSCULAR VOLUME 83.5 FL (78-98); MONOCYTES # (AUTO) 0.9 X10'3 (0-0.9); NEUTROPHILS # (AUTO) 6.4 X10'3 (1.8-7.7); NEUTROPHILS % (AUTO) 66.2 % (42-75); PLATELET COUNT 411 X10'3 (140-440); RED BLOOD COUNT 4.75 X10'6 (4.70-6.10); RED CELL DISTRIBUTION WIDTH 17.5 % (11.5-14.5); WHITE BLOOD COUNT 9.6 X10'3 (4.5-11.0)
[2022-11-06 05:50] LABS: ALANINE AMINOTRANSFERASE 32 U/L (12-78); ALBUMIN 3.4 G/DL (3.4-5.0); ALBUMIN/GLOBULIN RATIO 0.7 (1.1-1.5); ALKALINE PHOSPHATASE 113 IU/L (46-116); ANION GAP 5 (8-16); ASPARTATE AMINO TRANSFERASE 31 U/L (10-37); BILIRUBIN,TOTAL 0.2 MG/DL (0.1-1.0); BLOOD UREA NITROGEN 15 MG/DL (7-18); CALCIUM 8.7 MG/DL (8.5-10.1); CHLORIDE 106 MMOL/L (99-107); CREATININE 0.88 MG/DL (0.60-1.10); GLUCOSE 94 MG/DL (70-104); SODIUM 142 MMOL/L (135-145); TOTAL CARBON DIOXIDE 31.5 MMOL/L (24-32); TOTAL PROTEIN 8.1 G/DL (6.4-8.2); eGFR > 90 ML/MIN
== END 2022-11-06 06:55 | disposition left against medical advice (07) ==
LOC: ER 05:17
DX: R07.9 Chest pain, unspecified (principal); Z53.21 Procedure and treatment not carried out due to patient leaving prior to being seen by health care provider
CPT/HCPCS: 36415; 71045; 80053; 83880; 84484; 85025; 93005; 99281